=== PATIENT | male | born 1980 | race Caucasian/White ===

== ENCOUNTER 2016-07-23 13:52 | Emergency (ER) | payer MEDICAID ==
[~2016-07-23] VITALS: Ht 170.2 cm; Wt 90.7 kg
[2016-07-23 14:20] VITALS: BP_SYST 148
[2016-07-23] MEDS ORDERED: IBUPROFEN 800 MG TABLET PO ONE (15:15)
[2016-07-23 16:15] VITALS: BP_SYST 143
== END 2016-07-23 16:15 | disposition home or self-care (01) ==
LOC: SED 13:52
DX: S93.402A Sprain of unspecified ligament of left ankle, initial encounter (principal); W22.8XXA Striking against or struck by other objects, initial encounter; Y93.01 Activity, walking, marching and hiking; Y92.89 Other specified places as the place of occurrence of the external cause; Y99.8 Other external cause status
CPT/HCPCS: 99284

== ENCOUNTER 2016-10-04 09:39 | Emergency (ER) | payer MEDICAID ==
[~2016-10-04] VITALS: Ht 167.6 cm; Wt 93.0 kg
[2016-10-04 09:43] VITALS: BP_SYST 141
[2016-10-04 11:05] VITALS: BP_SYST 130
== END 2016-10-04 11:02 | disposition home or self-care (01) ==
LOC: SED 09:39
DX: M67.472 Ganglion, left ankle and foot (principal)
CPT/HCPCS: 99284

== ENCOUNTER 2016-10-17 08:14 | Emergency (ER) | payer MEDICAID ==
[~2016-10-17] VITALS: Ht 167.6 cm; Wt 90.7 kg
[2016-10-17 08:15] VITALS: BP_SYST 120
--- NOTE | 2016-10-17 08:15 | NUR ---
BROUGHT BACK TO BED #4 AND TRIAGED. REPORT GIVEN TO JACK
--- NOTE | 2016-10-17 08:25 | NUR ---
ER at bedside examining patient.
--- NOTE | 2016-10-17 08:44 | NUR ---
Pt has a cyst on his L ankle and needs a doctors note to go back to work. Pt ambulated into the ER with no noted difficulty. No other injuries/complaints per pt or noted.
[2016-10-17 08:56] VITALS: BP_SYST 120
--- NOTE | 2016-10-17 08:56 | NUR ---
Patient given written and verbal discharge instructions and verbalizes understanding. ER MD discussed with patient the results and treatment provided. Patient in stable condition. ID arm band removed. No Rx given. Patient educated on pain management and to follow up with PMD. Pain Scale 0/10. Opportunity for questions provided and answered.
== END 2016-10-17 08:56 | disposition home or self-care (01) ==
LOC: SED 08:14
DX: M25.572 Pain in left ankle and joints of left foot (principal); M67.472 Ganglion, left ankle and foot
CPT/HCPCS: 99281

== ENCOUNTER 2016-12-03 18:57 | Emergency (ER) | payer MEDICAID ==
[~2016-12-03] VITALS: Ht 165.1 cm; Wt 90.7 kg
--- NOTE | 2016-12-03 19:15 | NUR ---
Patient to ER bed 05 to gown for evaluation. Side rails up. Report given to
[2016-12-03 19:16] VITALS: BP_SYST 127
--- NOTE | 2016-12-03 19:20 | NUR ---
Patient arrived to ED a/o x 4 with c/o generalized body pain. Patient reports wide spread cramping pain. Reports continuous ETOH consumption x 10 days. Patient appears anxious. Patient states she feels dehydrated. Patient has history cramping secondary to ETOH consumption. C/O 7/10 pain. Family at bedside. Will continue to monitor.
--- NOTE | 2016-12-03 19:25 | NUR ---
20 gauge angiocath placed to right AC. Use of asceptic technique. Opsite placed over site. Blood return noted. Blood for lab drawn from site. Flushed with 10 cc of normal saline. No evidence of infiltration noted. Patient tolerated well.
[2016-12-03] MEDS ORDERED: NACL 0.9% 1,000 ML IV ONE (19:30)
[2016-12-03] MEDS ORDERED: LORazepam 2 MG/ML VIAL (FOR ER USE) IVP ONE (19:30)
[2016-12-03] MEDS ORDERED: FOLIC ACID 1 MG, THIAMINE HCL 100 MG, MAGNESIUM SULFATE 1 GM, MVI 10 ML in NACL 0.9% 1,... IV ONE (19:30)
[2016-12-03] MEDS ORDERED: ONDANSETRON HCL 4 MG/2 ML VIAL IVP ONE (19:30)
[2016-12-03] MEDS ORDERED: PANTOPRAZOLE SODIUM 40 MG/VIAL (PROTONIX) IVP ONE (19:30)
--- NOTE | 2016-12-03 19:30 | NUR ---
ED TANKAGE GRINDER OPERATOR Siddiqui at bedside for medical evaluation.
[2016-12-03 19:38] LABS: BASOPHILS % (AUTO) 0.4 % (0.0-2.0); EOSINOPHILS # (AUTO) 0.2 K/uL (0.0-0.4); EOSINOPHILS % (AUTO) 1.4 % (0.0-4.0); HEMATOCRIT 47.4 % (36-54); HEMOGLOBIN 15.8 g/dL (14.0-18.0); LYMPHOCYTES # (AUTO) 4.3 K/uL (1.0-5.5); MEAN CORPUSCULAR HEMOGLOBIN 30 pg (27-31); MEAN CORPUSCULAR HGB CONC 33 % (32-36); MEAN CORPUSCULAR VOLUME 91 fL (79.0-98.0); MONOCYTES # (AUTO) 0.8 K/uL (0.0-1.0); NEUTROPHILS # (AUTO) 6.7 K/uL (1.8-7.7); NEUTROPHILS % (AUTO) 55.2 % (40.0-70.0); PLATELET COUNT (AUTO) 288 K/uL (130-430); RED BLOOD CELL COUNT(AUTO) 5.21 MIL/uL (4.2-6.2); RED CELL DISTRIBUTION WIDTH 12.3 % (9.0-15.0)
--- NOTE | 2016-12-03 19:40 | NUR ---
Medicated per MD orders. IVF infusing with no s/s of infiltration at this time. Will continue to monitor.
[2016-12-03 19:48] LABS: CREATININE 1.08 mg/dL (0.55-1.30); POTASSIUM 3.7 mmol/L (3.5-5.1)
[2016-12-03 19:49] LABS: PROTHROMBIN TIME 10.4 SECS (9.5-12.5)
[2016-12-03 19:52] LABS: ALBUMIN 4.3 g/dL (3.4-4.8); TOTAL BILIRUBIN 0.8 mg/dL (0.0-1.0)
[2016-12-03] MEDS ORDERED: MAGNESIUM SULFATE 1 GM/2 ML VIAL ONE (19:56)
[2016-12-03] MEDS ORDERED: FOLIC ACID 5 MG/ML VIAL IV ONE (19:56)
[2016-12-03] MEDS ORDERED: MVI 10 ML VIAL IV ONE (19:56)
[2016-12-03] MEDS ORDERED: THIAMINE HCL 100 MG/ML VIAL ONE (19:56)
[2016-12-03 19:59] LABS: BILIRUBIN,URINE NEGATIVE (NEGATIVE); BLOOD, URINE NEGATIVE (NEGATIVE); CLARITY/URINE CLEAR (CLEAR); COLOR,URINE STRAW (YELLOW); GLUCOSE,URINE NEGATIVE (NEGATIVE); KETONES,URINE NEGATIVE (NEGATIVE); LEUKOCYTE ESTERASE ,URINE NEGATIVE (NEGATIVE); NITRITE, URINE NEGATIVE (NEGATIVE); PROTEIN URINE NEGATIVE (NEGATIVE); UROBILINOGEN,URINE 0.2 (0.2-1.0)
[2016-12-03 20:05] LABS: BARBITURATE, URINE NEGATIVE (NEG <=200); URINE AMPHETAMINE NEGATIVE (NEG <=500)
[2016-12-03 20:06] LABS: BENZODIAZEPINE, URINE NEGATIVE (NEG <=150); CANNABINOID, URINE NEGATIVE (NEG <=50); COCAINE, URINE NEGATIVE (NEG <=150); METHAMPHETAMINES SCREEN,URINE NEGATIVE (NEG <=500); OPIATE, URINE NEGATIVE (NEG <=100); PHENCYCLIDINE SCREEN,URINE NEGATIVE (NEG <=25); UR TRICYCLIC ANTIDEPRESSANTS NEGATIVE (NEG <=300); URINE METHADONE NEGATIVE (NEG <=200); URINE OXYCODONE SCREEN NEGATIVE (NEG <=100); URINE PROPOXYPHENE SCREEN NEGATIVE (NEG <=300)
--- NOTE | 2016-12-03 20:20 | NUR ---
Patient resting quietly in bed. No acute anxiety at this time. Patient states he is beginning to feel better. Reports pain 6/10. Will continue to monitor.
--- NOTE | 2016-12-03 23:00 | NUR ---
Patient reports relief of cramping. Denies pain at this time. No acute distress noted. Vital signs within normal limits.
--- NOTE | 2016-12-04 | NUR ---
ED MD Osea at bedside reassessing patient.
[2016-12-04 00:20] VITALS: BP_SYST 127
--- NOTE | 2016-12-04 00:20 | NUR ---
Patient given written and verbal discharge instructions and verbalizes understanding. ER MD discussed with patient the results and treatment provided. Patient in stable condition. ID arm band removed. IV catheter removed intact and dressing applied, no active bleeding. No Rx given. Patient educated on pain management and to follow up with PMD. Pain Scale 2/10 tolerable for patient. Opportunity for questions provided and answered.
== END 2016-12-04 00:20 | disposition home or self-care (01) ==
LOC: SED 18:57
DX: F10.129 Alcohol abuse with intoxication, unspecified (principal); F17.210 Nicotine dependence, cigarettes, uncomplicated
CPT/HCPCS: 36415; 80053; 80307; 81003; 83690; 85025; 85610; 96365; 96366; 96374; 96375; 99285; C9113; G0482; J2060; J2405; J3411; J3475; J3490; J7030

== ENCOUNTER 2017-03-08 16:36 | Emergency (ER) | payer MEDICAID ==
[~2017-03-08] VITALS: Ht 167.6 cm; Wt 90.3 kg
[2017-03-08 16:44] VITALS: BP_SYST 160
[2017-03-08] MEDS ORDERED: NACL 0.9% 1,000 ML IV ONE ×2 (17:24→17:30)
[2017-03-08] MEDS ORDERED: DIPHENHYDRAMINE INJ 50 MG/ML VIAL IVP ONE (17:30)
[2017-03-08] MEDS ORDERED: LORazepam 2 MG/ML VIAL (FOR ER USE) IVP ONE (17:30)
[2017-03-08] MEDS ORDERED: FOLIC ACID 1 MG, THIAMINE HCL 100 MG, MAGNESIUM SULFATE 1 GM, MVI 10 ML in NACL 0.9% 1,... IV ONE (17:30)
[2017-03-08] MEDS ORDERED: MVI 10 ML VIAL IV ONE (17:34)
[2017-03-08] MEDS ORDERED: MAGNESIUM SULFATE 1 GM/2 ML VIAL ONE (17:34)
[2017-03-08] MEDS ORDERED: THIAMINE HCL 100 MG/ML VIAL ONE (17:34)
[2017-03-08] MEDS ORDERED: FOLIC ACID 5 MG/ML VIAL IV ONE (17:34)
[2017-03-08 17:45] LABS: BILIRUBIN,URINE NEGATIVE (NEGATIVE); BLOOD, URINE NEGATIVE (NEGATIVE); CLARITY/URINE CLEAR (CLEAR); COLOR,URINE STRAW (YELLOW); GLUCOSE,URINE NEGATIVE (NEGATIVE); KETONES,URINE NEGATIVE (NEGATIVE); LEUKOCYTE ESTERASE ,URINE NEGATIVE (NEGATIVE); NITRITE, URINE NEGATIVE (NEGATIVE); PROTEIN URINE NEGATIVE (NEGATIVE); UROBILINOGEN,URINE 0.2 (0.2-1.0)
[2017-03-08 17:52] LABS: BARBITURATE, URINE NEGATIVE (NEG <=200); BENZODIAZEPINE, URINE NEGATIVE (NEG <=150); CANNABINOID, URINE NEGATIVE (NEG <=50); COCAINE, URINE NEGATIVE (NEG <=150); METHAMPHETAMINES SCREEN,URINE NEGATIVE (NEG <=500); OPIATE, URINE NEGATIVE (NEG <=100); PHENCYCLIDINE SCREEN,URINE NEGATIVE (NEG <=25); UR TRICYCLIC ANTIDEPRESSANTS NEGATIVE (NEG <=300); URINE AMPHETAMINE NEGATIVE (NEG <=500); URINE METHADONE NEGATIVE (NEG <=200); URINE OXYCODONE SCREEN NEGATIVE (NEG <=100); URINE PROPOXYPHENE SCREEN NEGATIVE (NEG <=300)
[2017-03-08 17:58] LABS: BASOPHILS % (AUTO) 0.7 % (0.0-2.0); EOSINOPHILS # (AUTO) 0.3 K/uL (0.0-0.4); EOSINOPHILS % (AUTO) 5.8 % (0.0-4.0); HEMATOCRIT 47.3 % (36-54); HEMOGLOBIN 15.4 g/dL (14.0-18.0); LYMPHOCYTES # (AUTO) 2.5 K/uL (1.0-5.5); MEAN CORPUSCULAR HEMOGLOBIN 31 pg (27-31); MEAN CORPUSCULAR HGB CONC 33 % (32-36); MEAN CORPUSCULAR VOLUME 95 fL (79.0-98.0); MONOCYTES # (AUTO) 0.6 K/uL (0.0-1.0); MONOCYTES % (AUTO) 9.3 % (1.7-9.3); NEUTROPHILS # (AUTO) 2.5 K/uL (1.8-7.7); NEUTROPHILS % (AUTO) 42.2 % (40.0-70.0); PLATELET COUNT (AUTO) 163 K/uL (130-430); RED BLOOD CELL COUNT(AUTO) 4.98 MIL/uL (4.2-6.2); RED CELL DISTRIBUTION WIDTH 14.1 % (9.0-15.0); WHITE BLOOD COUNT (AUTO) 5.9 K/uL (4.8-10.8)
[2017-03-08 18:09] LABS: INR 0.9 (0.80-1.20); PROTHROMBIN TIME 9.6 SECS (9.5-12.5)
[2017-03-08 18:10] LABS: CALCIUM 8.7 mg/dL (8.4-11.0); CREATININE 1.03 mg/dL (0.55-1.30); POTASSIUM 3.6 mmol/L (3.5-5.1)
[2017-03-08 18:13] LABS: ALBUMIN 4.1 g/dL (3.4-4.8); TOTAL BILIRUBIN 0.3 mg/dL (0.0-1.0)
[2017-03-08 21:15] VITALS: BP_SYST 128
== END 2017-03-08 21:15 | disposition home or self-care (01) ==
LOC: SED 16:36
DX: F10.129 Alcohol abuse with intoxication, unspecified (principal); F41.9 Anxiety disorder, unspecified; K21.9 Gastro-esophageal reflux disease without esophagitis; Y90.8 Blood alcohol level of 240 mg/100 ml or more
CPT/HCPCS: 36415; 80053; 80307; 81003; 82150; 82550; 83690; 84484; 85025; 85610; 85730; 93005; 96365; 96366; 96375; 99285; G0481; G0482; J1200; J2060; J3411; J3475; J3490; J7030

== ENCOUNTER 2018-03-06 13:31 | Emergency (ER) | payer MEDICAID ==
[~2018-03-06] VITALS: Ht 170.2 cm; Wt 93.0 kg
[2018-03-06 13:41] VITALS: BP_SYST 165
[2018-03-06] MEDS ORDERED: NACL 0.9% 1,000 ML IV ONE (14:16)
[2018-03-06] MEDS ORDERED: ONDANSETRON HCL 4 MG/2 ML VIAL IVP ONE (14:30)
[2018-03-06] MEDS ORDERED: DIPHENHYDRAMINE INJ 50 MG/ML VIAL IVP ONE (14:30)
[2018-03-06 14:42] LABS: BASOPHILS # (AUTO) 0.2 K/uL (0.0-0.2); BASOPHILS % (AUTO) 1.2 % (0.0-2.0); EOSINOPHILS # (AUTO) 0.1 K/uL (0.0-0.4); EOSINOPHILS % (AUTO) 0.9 % (0.0-4.0); HEMATOCRIT 42.8 % (36-54); HEMOGLOBIN 14.1 g/dL (14.0-18.0); LYMPHOCYTES # (AUTO) 1.8 K/uL (1.0-5.5); LYMPHOCYTES % (AUTO) 12.2 % (20.5-51.5); MEAN CORPUSCULAR HEMOGLOBIN 31 pg (27-31); MEAN CORPUSCULAR HGB CONC 33 % (32-36); MEAN CORPUSCULAR VOLUME 95 fL (79.0-98.0); MONOCYTES # (AUTO) 1.2 K/uL (0.0-1.0); MONOCYTES % (AUTO) 8.4 % (1.7-9.3); NEUTROPHILS # (AUTO) 11.1 K/uL (1.8-7.7); NEUTROPHILS % (AUTO) 77.3 % (40.0-70.0); PLATELET COUNT (AUTO) 386 K/uL (130-430); RED BLOOD CELL COUNT(AUTO) 4.53 MIL/uL (4.2-6.2); RED CELL DISTRIBUTION WIDTH 14.5 % (9.0-15.0); WHITE BLOOD COUNT (AUTO) 14.4 K/uL (4.8-10.8)
[2018-03-06 15:13] LABS: CALCIUM 9.2 mg/dL (8.4-11.0); CREATININE 0.88 mg/dL (0.55-1.30); POTASSIUM 3.2 mmol/L (3.5-5.1)
[2018-03-06 15:17] LABS: ALBUMIN 3.2 g/dL (3.4-4.8)
[2018-03-06 15:30] VITALS: BP_SYST 121
== END 2018-03-06 15:30 | disposition home or self-care (01) ==
LOC: SED 13:31
DX: F10.239 Alcohol dependence with withdrawal, unspecified (principal)
CPT/HCPCS: 36415; 80053; 83690; 85025; 96374; 96375; 99283; G0482; J1200; J2405; J7030

== ENCOUNTER 2019-09-16 14:33 | Emergency (ER) | payer MEDICAID ==
[~2019-09-16] VITALS: Ht 167.6 cm; Wt 83.9 kg
[2019-09-16 14:40] VITALS: BP_SYST 153
--- NOTE | 2019-09-16 14:54 | NUR ---
Patient to ER bed H1 to gown for evaluation. Side rails up.
--- NOTE | 2019-09-16 14:56 | NUR ---
Pt brought by family, A&Ox4, pt presents to ER with alcohol intoxication, unstable gait , pt was drinking beer last night, pt c/o abdominal pain, skin pink and warm, cap refill <3, will cont to monitor.
--- NOTE | 2019-09-16 15:00 | NUR ---
ER Dr. Olson at bedside examining patient.
--- NOTE | 2019-09-16 15:10 | NUR ---
# 18 gauge angiocath placed to RAC. Use of asceptic technique. Opsite placed over site. Blood return noted. Blood for lab drawn from site. Flushed with 10 cc of normal saline. No evidence of infiltration noted. Patient tolerated well.
[2019-09-16] MEDS ORDERED: NACL 0.9% 1,000 ML IV ONE (15:15)
--- NOTE | 2019-09-16 15:27 | NUR ---
1L NS bolus infusing as ordered by
[2019-09-16 15:35] LABS: BASOPHILS # (AUTO) 0.1 K/uL (0.0-0.2); BASOPHILS % (AUTO) 0.7 % (0.0-2.0); EOSINOPHILS # (AUTO) 0.2 K/uL (0.0-0.4); EOSINOPHILS % (AUTO) 2.6 % (0.0-4.0); HEMATOCRIT 38.8 % (36-54); HEMOGLOBIN 12.9 g/dL (14.0-18.0); LYMPHOCYTES % (AUTO) 40.1 % (20.5-51.5); MEAN CORPUSCULAR HEMOGLOBIN 29 pg (27-31); MEAN CORPUSCULAR HGB CONC 33 % (32-36); MEAN CORPUSCULAR VOLUME 87 fL (79.0-98.0); MONOCYTES # (AUTO) 0.5 K/uL (0.0-1.0); MONOCYTES % (AUTO) 6.7 % (1.7-9.3); NEUTROPHILS # (AUTO) 3.7 K/uL (1.8-7.7); NEUTROPHILS % (AUTO) 49.9 % (40.0-70.0); PLATELET COUNT (AUTO) 230 K/uL (130-430); RED BLOOD CELL COUNT(AUTO) 4.44 MIL/uL (4.2-6.2); RED CELL DISTRIBUTION WIDTH 15.5 % (9.0-15.0); WHITE BLOOD COUNT (AUTO) 7.4 K/uL (4.8-10.8)
[2019-09-16 15:56] VITALS: BP_SYST 153
[2019-09-16 16:05] LABS: ALBUMIN 3.8 g/dL (3.4-4.8); CALCIUM 8.5 mg/dL (8.4-11.0); CREATININE 0.86 mg/dL (0.55-1.30); POTASSIUM 3.4 mmol/L (3.5-5.1)
== END 2019-09-16 16:00 | disposition home or self-care (01) ==
LOC: SED 14:33
DX: F10.229 Alcohol dependence with intoxication, unspecified (principal); Y90.8 Blood alcohol level of 240 mg/100 ml or more
CPT/HCPCS: 36415; 80053; 85025; 99283; G0482; J7030

== ENCOUNTER 2019-10-27 21:56 | Emergency (ER) | payer MEDICAID ==
[~2019-10-27] VITALS: Ht 165.1 cm; Wt 79.4 kg
[2019-10-27 22:05] VITALS: BP_SYST 153
[2019-10-27] MEDS ORDERED: THIAMINE HCL 100 MG in NS 50 ML IV ONE (22:15)
[2019-10-27] MEDS ORDERED: FOLIC ACID 5 MG/ML VIAL IV ONE (22:15)
[2019-10-27] MEDS ORDERED: MAGNESIUM SULFATE 50 ML IV ONE (22:15)
[2019-10-27 22:49] LABS: BASOPHILS # (AUTO) 0.1 K/uL (0.0-0.2); BASOPHILS % (AUTO) 0.8 % (0.0-2.0); EOSINOPHILS # (AUTO) 0.5 K/uL (0.0-0.4); EOSINOPHILS % (AUTO) 5.6 % (0.0-4.0); HEMATOCRIT 40.9 % (36-54); HEMOGLOBIN 13.6 g/dL (14.0-18.0); LYMPHOCYTES # (AUTO) 4.1 K/uL (1.0-5.5); LYMPHOCYTES % (AUTO) 45.3 % (20.5-51.5); MEAN CORPUSCULAR HEMOGLOBIN 29 pg (27-31); MEAN CORPUSCULAR HGB CONC 33 % (32-36); MEAN CORPUSCULAR VOLUME 86 fL (79.0-98.0); MONOCYTES # (AUTO) 0.7 K/uL (0.0-1.0); MONOCYTES % (AUTO) 7.2 % (1.7-9.3); NEUTROPHILS # (AUTO) 3.7 K/uL (1.8-7.7); NEUTROPHILS % (AUTO) 41.1 % (40.0-70.0); PLATELET COUNT (AUTO) 333 K/uL (130-430); RED BLOOD CELL COUNT(AUTO) 4.74 MIL/uL (4.2-6.2); RED CELL DISTRIBUTION WIDTH 14.5 % (9.0-15.0)
[2019-10-27 22:51] LABS: ANION GAP 8 (5-15); CALCIUM 8.8 mg/dL (8.4-11.0); CHLORIDE 105 mmol/L (98-107); CREATININE 1.06 mg/dL (0.55-1.30); GLUCOSE 116 mg/dL (70-99); POTASSIUM 3.6 mmol/L (3.5-5.1); SODIUM SERUM 139 mmol/L (136-145); UREA NITROGEN, BLOOD 7 mg/dL (8-21)
[2019-10-27 23:00] LABS: ALANINE AMINOTRANSFERASE 39 U/L (12-78); ALBUMIN 4.1 g/dL (3.4-4.8); ALCOHOL, BLOOD 259 mg/dL (<10); ASPARTATE AMINOTRANSFERASE 36 U/L (10-37); TOTAL BILIRUBIN 0.4 mg/dL (0.0-1.0)
[2019-10-27 23:05] LABS: GFR AFRICAN AMERICAN 100 mL/min (>90)
[2019-10-27 23:06] LABS: ACETAMINOPHEN < 1 ug/mL (1-30)
[2019-10-27 23:26] LABS: CKMB RELATIVE INDEX 0.7 (0.0-2.9); CREATINE KINASE MB 3.4 ng/mL (0-3.6)
[2019-10-27] MEDS ORDERED: THIAMINE HCL 100 MG/ML VIAL ONE (23:29)
[2019-10-28] MEDS ORDERED: ONDANSETRON 4 MG ODT TAB PO ONE (06:30)
[2019-10-28 06:46] VITALS: BP_SYST 117
== END 2019-10-28 06:46 | disposition home or self-care (01) ==
LOC: SED 21:56
DX: F10.229 Alcohol dependence with intoxication, unspecified (principal); Y90.8 Blood alcohol level of 240 mg/100 ml or more
CPT/HCPCS: 36415; 80053; 82550; 82553; 85025; 93005; 96365; 96368; 96375; 99285; G0480; G0481; G0482; J3411; J3475; J3490; Q0162; 99283

== ENCOUNTER 2020-03-13 07:37 | Emergency (ER) | payer MEDICAID ==
[~2020-03-13] VITALS: Ht 170.2 cm; Wt 90.7 kg
--- NOTE | 2020-03-13 07:40 | NUR ---
Pt brought by self, A&Ox4, pt presents to ER with lower back pain, pt states she has Hx of liver failure, skin pink and warm, cap refill <3.
--- NOTE | 2020-03-13 07:40 | NUR ---
Patient triaged and placed in waiting room. VSS and patient appears in no acute distress at this time. Accompanied by self , awaiting available bed, and MD notified of need for MSE.
--- NOTE | 2020-03-13 07:50 | NUR ---
Dr Hood evaluating patient at bedside
[2020-03-13 08:05] VITALS: BP_SYST 151
--- NOTE | 2020-03-13 08:20 | NUR ---
Patient given written and verbal discharge instructions and verbalizes understanding. ER MD discussed with patient the results and treatment provided. Patient in stable condition. ID arm band removed. Rx of Robaxin and Celebrex given. Patient educated on pain management and to follow up with PMD. Pain Scale 3/10. Opportunity for questions provided and answered. Medication side effect fact sheet provided.
[2020-03-13 08:21] VITALS: BP_SYST 151
[2020-03-13] MEDS ORDERED: CELE100C PO (08:25)
[2020-03-13] MEDS ORDERED: METH750T3 PO (08:28)
== END 2020-03-13 08:20 | disposition home or self-care (01) ==
LOC: SED 07:37
DX: M54.42 Lumbago with sciatica, left side (principal); N18.9 Chronic kidney disease, unspecified; K76.89 Other specified diseases of liver; F10.239 Alcohol dependence with withdrawal, unspecified
CPT/HCPCS: 99283

== ENCOUNTER 2020-12-03 14:57 | Emergency (ER) | payer MEDICAID ==
[~2020-12-03] VITALS: Ht 167.6 cm; Wt 95.3 kg
[~2020-12-03 14:57] MED LIST: CELE100C PO; METH-634 PO
--- NOTE | 2020-12-03 15:44 | NUR ---
Placed in room 7 . Placed on case monitor, blood pressure machine and pulse oximeter. To gown for exam. Side rails up.
[2020-12-03 15:45] VITALS: BP_SYST 134
--- NOTE | 2020-12-03 15:45 | NUR ---
PT BIB SIG OTHER REPORTS HE IS HAVING ETOH WITHDRAWAL. STATES HE DRANK 1/2 PINT 1 HOUR PRIOR TO ARRIVAL. PT STATES HE HAS TREMORS. AAOX4, AMBULATORY, V/S STABLE
--- NOTE | 2020-12-03 16:09 | NUR ---
ER DR. TERRY AT THE BEDSIDE EXAMINING PT
[2020-12-03] MEDS ORDERED: chlordiazePOXIDE HCL 25 MG CAPSULE PO ONE (16:15)
[2020-12-03] MEDS ORDERED: LORazepam 2 MG/ML VIAL IVP ONE (16:15)
[2020-12-03] MEDS ORDERED: NACL 0.9% 1,000 ML IV ONE (16:15)
[2020-12-03] MEDS ORDERED: ONDANSETRON HCL 4 MG/2 ML VIAL IVP ONE (16:15)
--- NOTE | 2020-12-03 16:30 | NUR ---
PT IS SLEEPING, NO DISTRESS, V/S STABLE
[2020-12-03 16:47] LABS: BASOPHILS % (AUTO) 0.6 % (0.0-2.0); EOSINOPHILS # (AUTO) 0.1 K/uL (0.0-0.4); EOSINOPHILS % (AUTO) 1.2 % (0.0-4.0); HEMATOCRIT 44.8 % (36-54); HEMOGLOBIN 15.5 g/dL (14.0-18.0); LYMPHOCYTES # (AUTO) 2.6 K/uL (1.0-5.5); LYMPHOCYTES % (AUTO) 35.1 % (20.5-51.5); MEAN CORPUSCULAR HEMOGLOBIN 31 pg (27-31); MEAN CORPUSCULAR HGB CONC 35 % (32-36); MEAN CORPUSCULAR VOLUME 90 fL (79.0-98.0); MONOCYTES # (AUTO) 0.7 K/uL (0.0-1.0); MONOCYTES % (AUTO) 9.1 % (1.7-9.3); NEUTROPHILS # (AUTO) 3.9 K/uL (1.8-7.7); PLATELET COUNT (AUTO) 225 K/uL (130-430); RED BLOOD CELL COUNT(AUTO) 4.98 MIL/uL (4.2-6.2); RED CELL DISTRIBUTION WIDTH 13.7 % (9.0-15.0); WHITE BLOOD COUNT (AUTO) 7.3 K/uL (4.8-10.8)
[2020-12-03 16:52] LABS: CALCIUM 8.5 mg/dL (8.4-11.0); CREATININE 1.09 mg/dL (0.55-1.30); POTASSIUM 3.9 mmol/L (3.5-5.1)
[2020-12-03 16:58] LABS: ALBUMIN 3.7 g/dL (3.4-4.8); TOTAL BILIRUBIN 1.2 mg/dL (0.0-1.0)
--- NOTE | 2020-12-03 17:24 | NUR ---
Salena alex in [facility] - 12/03/20 at 1826 by [email or web address] ADMISSION ORDERS RECEIVED FROM DR. GARIBAY
[2020-12-03 18:30] VITALS: BP_SYST 127
== END 2020-12-03 18:29 | disposition home or self-care (01) ==
LOC: SED 14:57
DX: F10.10 Alcohol abuse, uncomplicated (principal); E86.0 Dehydration; R74.01 Elevation of levels of liver transaminase levels; Y90.9 Presence of alcohol in blood, level not specified
CPT/HCPCS: 36415; 80053; 85025; 96361; 96374; 96375; 99284; J2060; J2405; J7030

== ENCOUNTER 2021-08-05 12:48 | Emergency (ER) | payer MEDICAID ==
[~2021-08-05] VITALS: Ht 170.2 cm; Wt 95.3 kg
[2021-08-05 13:18] VITALS: BP_SYST 130
== END 2021-08-05 14:45 | disposition left against medical advice (07) ==
LOC: SED 12:48
DX: F10.929 Alcohol use, unspecified with intoxication, unspecified (principal); Z53.21 Procedure and treatment not carried out due to patient leaving prior to being seen by health care provider

== ENCOUNTER 2022-02-20 17:30 | Emergency (ER) | payer MEDICAID ==
[~2022-02-20] VITALS: Ht 170.2 cm; Wt 95.3 kg
[2022-02-20 17:51] VITALS: BP_SYST 123
[2022-02-20] MEDS ORDERED: KETOROLAC TROMETHAMINE 30 MG VIAL IVP ONE (20:15)
[2022-02-20] MEDS ORDERED: NACL 0.9% 1,000 ML IV ONE (20:15)
[2022-02-20 20:46] LABS: BASOPHILS # (AUTO) 0.1 K/uL (0.0-0.2); BASOPHILS % (AUTO) 0.7 % (0.0-2.0); EOSINOPHILS # (AUTO) 0.4 K/uL (0.0-0.4); EOSINOPHILS % (AUTO) 2.9 % (0.0-4.0); HEMATOCRIT 23.5 % (36-54); HEMOGLOBIN 7.4 g/dL (14.0-18.0); LYMPHOCYTES # (AUTO) 2.3 K/uL (1.0-5.5); LYMPHOCYTES % (AUTO) 18.1 % (20.5-51.5); MEAN CORPUSCULAR HEMOGLOBIN 28 pg (27-31); MEAN CORPUSCULAR HGB CONC 32 % (32-36); MEAN CORPUSCULAR VOLUME 89 fL (79.0-98.0); MONOCYTES # (AUTO) 1.2 K/uL (0.0-1.0); MONOCYTES % (AUTO) 9.6 % (1.7-9.3); NEUTROPHILS # (AUTO) 8.8 K/uL (1.8-7.7); NEUTROPHILS % (AUTO) 68.7 % (40.0-70.0); PLATELET COUNT (AUTO) 214 K/uL (130-430); RED BLOOD CELL COUNT(AUTO) 2.64 MIL/uL (4.2-6.2); RED CELL DISTRIBUTION WIDTH 18.5 % (9.0-15.0); WHITE BLOOD COUNT (AUTO) 12.8 K/uL (4.8-10.8)
[2022-02-20 20:58] LABS: CALCIUM 8.6 mg/dL (8.4-11.0); CREATININE 0.94 mg/dL (0.55-1.30)
[2022-02-20 21:04] LABS: ALBUMIN 3.1 g/dL (3.4-4.8)
[2022-02-20 21:05] LABS: BILIRUBIN,URINE 1+ (NEGATIVE); BLOOD, URINE NEGATIVE (NEGATIVE); CLARITY/URINE CLEAR (CLEAR); COLOR,URINE ORANGE (YELLOW); GLUCOSE,URINE NEGATIVE (NEGATIVE); KETONES,URINE TRACE (NEGATIVE); LEUKOCYTE ESTERASE ,URINE NEGATIVE (NEGATIVE); NITRITE, URINE NEGATIVE (NEGATIVE); PH,URINE 5.5 (5.0-8.0); PROTEIN URINE TRACE (NEGATIVE)
[2022-02-20] MEDS ORDERED: FAMO40TA71 PO (22:02)
[2022-02-20 22:03] VITALS: BP_SYST 145
[2022-02-20] MEDS ORDERED: PANTOPRAZOLE SODIUM 40 MG/VIAL (PROTONIX) IVP ONE (22:15)
[2022-02-20] MEDS ORDERED: LIB25 PO (22:31)
== END 2022-02-20 22:30 | disposition home or self-care (01) ==
LOC: SED 17:30
DX: K29.70 Gastritis, unspecified, without bleeding (principal); R10.30 Lower abdominal pain, unspecified; K62.89 Other specified diseases of anus and rectum; Z79.899 Other long term (current) drug therapy
CPT/HCPCS: 99284; 74176; 96374; 96361; 96375; 80053; 83690; 85025; 36415; 76376; 81003; J1885; C9113; J7030

== ENCOUNTER 2023-05-18 13:34 | Emergency (ER) | payer MEDICAID ==
[~2023-05-18] VITALS: Ht 170.2 cm; Wt 99.8 kg
[~2023-05-18 13:34] MED LIST changes: +FAMO40TA71 PO; +LIB25 PO
[2023-05-18 13:35] VITALS: BP_SYST 155; PULSE 93; RESP 19; TEMP 98.8; O2SAT 95
[2023-05-18] MEDS ORDERED: LIB25 PO (14:56)
[2023-05-18] MEDS ORDERED: LORA-259 PO ×2 (15:05→15:06)
[2023-05-18 15:13] LABS: BASOPHILS # (AUTO) 0.1 K/uL (0.0-0.2); BASOPHILS % (AUTO) 0.7 % (0.0-2.0); EOSINOPHILS # (AUTO) 0.3 K/uL (0.0-0.4); EOSINOPHILS % (AUTO) 3.1 % (0.0-4.0); HEMATOCRIT 42.9 % (36-54); HEMOGLOBIN 15.4 g/dL (14.0-18.0); LYMPHOCYTES % (AUTO) 34.5 % (20.5-51.5); MEAN CORPUSCULAR HEMOGLOBIN 32 pg (27-31); MEAN CORPUSCULAR HGB CONC 36 % (32-36); MEAN CORPUSCULAR VOLUME 88 fL (79.0-98.0); MONOCYTES # (AUTO) 0.6 K/uL (0.0-1.0); NEUTROPHILS # (AUTO) 4.7 K/uL (1.8-7.7); NEUTROPHILS % (AUTO) 54.7 % (40.0-70.0); PLATELET COUNT (AUTO) 177 K/uL (130-430); RED CELL DISTRIBUTION WIDTH 13.3 % (9.0-15.0); WHITE BLOOD COUNT (AUTO) 8.6 K/uL (4.8-10.8)
[2023-05-18] MEDS: NACL 0.9% 2,000 ML IV ONE (15:38)
[2023-05-18] MEDS: LORazepam 2 MG/ML VIAL IVP ONE (15:40)
[2023-05-18 15:58] LABS: ALBUMIN 3.8 g/dL (3.4-4.8); CALCIUM 8.3 mg/dL (8.4-11.0); CREATININE 0.91 mg/dL (0.55-1.30); POTASSIUM 3.2 mmol/L (3.5-5.1); TOTAL BILIRUBIN 0.9 mg/dL (0.0-1.0); TOTAL PROTEIN, SERUM 7.9 g/dL (6.4-8.3)
[2023-05-18 15:59] LABS: BARBITURATE, URINE NEGATIVE (NEG <=200); BENZODIAZEPINE, URINE NEGATIVE (NEG <=150); CANNABINOID, URINE POSITIVE (NEG <=50); COCAINE, URINE NEGATIVE (NEG <=150); METHAMPHETAMINES SCREEN,URINE NEGATIVE (NEG <=500); OPIATE, URINE NEGATIVE (NEG <=100); PHENCYCLIDINE SCREEN,URINE NEGATIVE (NEG <=25); URINE AMPHETAMINE NEGATIVE (NEG <=500); URINE METHADONE NEGATIVE (NEG <=200); URINE OXYCODONE SCREEN NEGATIVE (NEG <=100)
[2023-05-18 16:00] LABS: UR TRICYCLIC ANTIDEPRESSANTS NEGATIVE (NEG <=300)
[2023-05-18] MEDS: POTASSIUM CHLORIDE 20 MEQ TABLET.ER PO ONE (16:27)
[2023-05-18 16:54] VITALS: BP_SYST 155; PULSE 93; RESP 19; TEMP 98.8; O2SAT 95
== END 2023-05-18 16:55 | disposition home or self-care (01) ==
LOC: SED 13:34
DX: F10.239 Alcohol dependence with withdrawal, unspecified (principal); F10.20 Alcohol dependence, uncomplicated; I10 Essential (primary) hypertension; Z79.899 Other long term (current) drug therapy; Y90.6 Blood alcohol level of 120-199 mg/100 ml
CPT/HCPCS: 99283; 96374; 96361; 80307; 80053; 83690; 85025; 36415; J2060; J7030